=== PATIENT | male | born 1935 | race African-American/Black ===

== ENCOUNTER 2021-06-30 17:18 | Emergency (ER) | payer MEDICARE, OTHER ==
[~2021-06-30] VITALS: Ht 165.1 cm; Wt 54.4 kg
[2021-06-30 17:23] VITALS: BP 71/33
--- NOTE | 2021-06-30 17:34 | NUR ---
Made call to daughter, who is power of patent attorney to clarify goals of care. POLST shows DNR. No answering, left message.
--- NOTE | 2021-06-30 18:12 | NUR ---
Spoke with Anand bailey and Malathi Trotter (daughter), Power of deputy commonwealth's attorney, and they confirmed DNR/DNI.
[2021-06-30 18:31] VITALS: BP 68/31
--- NOTE | 2021-06-30 19:25 | NUR ---
Patient with no spontaneous respirations and no pulse. Patient was evaluated at bedside. Patient was pronounced at 1903.
--- NOTE | 2021-06-30 20:25 | NUR ---
[facility] TO INFORM OF EXPIRATION OF PT. PER DAVID, HOME CARE NURSE WILL CALL BACK.
--- NOTE | 2021-06-30 20:26 | NUR ---
CALLED [facility] S/W SMITH WHO PROVIDED REFERENCE ID: [id number]. AT THIS TIME [facility] WILL NOT MOVE FORWARD WITH DONATION.
--- NOTE | 2021-06-30 20:35 | NUR ---
CALLED PCP- LUCINDA ALDRIDGE WHO ANSWERED AND WAS NOTIFIED OF PATIENT EXPIRATION
--- NOTE | 2021-06-30 21:00 | NUR ---
RETURN CALL FROM DEPUTY MARCI OF [facility] WHO STATED THE PT REMAINS ARE RELEASED.
--- NOTE | 2021-06-30 21:05 | NUR ---
PT MOVED TO ROOM 101 TO A/W PICKUP FROM [facility]
--- NOTE | 2021-06-30 21:42 | NUR ---
CALLED [facility] FOR ETA
--- NOTE | 2021-06-30 22:16 | NUR ---
ALL PAPERWORK GIVEN TO TALENT ACQUISITION ADMINISTRATOR, Karlene QUAN.
== END 2021-06-30 19:03 ==
LOC: MED 17:18
DX: R57.9 Shock, unspecified (principal); R09.02 Hypoxemia; R53.83 Other fatigue; R40.0 Somnolence; I25.2 Old myocardial infarction; I50.9 Heart failure, unspecified; F03.90 Unspecified dementia, unspecified severity, without behavioral disturbance, psychotic disturbance, mood disturbance, and anxiety; I48.91 Unspecified atrial fibrillation; I70.90 Unspecified atherosclerosis; Z87.448 Personal history of other diseases of urinary system
CPT/HCPCS: 99285